=== PATIENT | male | born 1945 | race Asian ===

== ENCOUNTER 2023-07-10 23:46 | Inpatient (IN) | payer MEDICARE, OTHER ==
[~2023-07-10] VITALS: Ht 172.7 cm; Wt 55.3 kg
[2023-07-11] MEDS ORDERED: MAGN400O6 PO (00:16)
[2023-07-11] MEDS ORDERED: DOCU100C36 PO (00:16)
[2023-07-11] MEDS ORDERED: TAMS-3 PO (00:16)
[2023-07-11] MEDS ORDERED: ACET-3117 PO (00:16)
[2023-07-11] MEDS ORDERED: MULT-213 PO (00:16)
[2023-07-11] MEDS ORDERED: AMLO-212 PO (00:16)
[2023-07-11] MEDS ORDERED: ATOR40TA PO (00:16)
[2023-07-11] MEDS ORDERED: APIX2.5T PO (00:16)
[2023-07-11] MEDS ORDERED: METO25TA6 PO (00:16)
[2023-07-11] MEDS ORDERED: CRAN450T9 PO (00:16)
[2023-07-11] MEDS ORDERED: DIVA125T2 PO (00:16)
[2023-07-11] MEDS ORDERED: SITA50TA PO (00:16)
[2023-07-11 00:19] LABS: BASOPHILS % (AUTO) 0.4 % (0.0-2.0); EOSINOPHILS # (AUTO) 0.6 K/uL (0.0-0.7); HEMATOCRIT 31.1 % (36.7-47.1); HEMOGLOBIN 10.2 g/dL (12.5-16.3); LYMPHOCYTES # (AUTO) 1.4 K/uL (0.8-4.8); LYMPHOCYTES % (AUTO) 17.8 % (20.5-51.5); MEAN CORPUSCULAR HEMOGLOBIN 31.5 uug (23.8-33.4); MEAN CORPUSCULAR HGB CONC 33 g/dL (32.5-36.3); MEAN CORPUSCULAR VOLUME 96.1 fL (73.0-96.2); MONOCYTES # (AUTO) 1.4 K/uL (0.1-1.30); MONOCYTES % (AUTO) 16.9 % (0.0-11.0); NEUTROPHILS # (AUTO) 4.7 K/uL (1.8-8.9); NEUTROPHILS % (AUTO) 57.9 % (38.5-71.5); PLATELET COUNT (AUTO) 185 K/uL (152-348); RED BLOOD CELL COUNT(AUTO) 3.24 MIL/uL (4.06-5.63); RED CELL DISTRIBUTION WIDTH 14.1 % (12.1-16.2); WHITE BLOOD COUNT (AUTO) 8.1 K/uL (3.6-10.2)
[2023-07-11 00:20] LABS: DIFFERENTIAL COMMENT 1
[2023-07-11 00:22] LABS: BAND % (MANUAL) 2 % (0-10); EOSINOPHILS % (MANUAL) 8 % (0-8); LYMPHOCYTES % (MANUAL) 20 % (20-40); MONOCYTES % (MANUAL) 15 % (2-10); NEUTROPHILS % (MANUAL) 55 % (42-75)
[2023-07-11 00:23] LABS: PLATELET ESTIMATE ADEQUATE
[2023-07-11 00:39] LABS: CALCIUM 8.7 mg/dL (8.5-10.1); CARBON DIOXIDE 26 mmol/L (21-32); CHLORIDE 107 mmol/L (98-107); CREATININE 2.3 mg/dL (0.6-1.3); GLUCOSE 141 mg/dL (74-106); POTASSIUM 4.3 mmol/L (3.5-5.1); SODIUM SERUM 141 mmol/L (136-145); UREA NITROGEN, BLOOD 41 mg/dL (7-18)
[2023-07-11 00:43] LABS: BILIRUBIN,DIRECT 0.1 mg/dL (0.0-0.2); BILIRUBIN,TOTAL 0.5 mg/dL (0.2-1.0)
[2023-07-11 00:44] LABS: ALANINE AMINOTRANSFERASE 18 U/L (16-63); ALBUMIN 3.2 g/dL (3.4-5.0); ALKALINE PHOSPHATASE 102 U/L (50-136); ASPARTATE AMINOTRANSFERASE 22 U/L (15-37); TOTAL PROTEIN, SERUM 7.1 g/dL (6.4-8.2); VALPROIC ACID 25 ug/mL (50-100)
[2023-07-11 00:46] LABS: ACETAMINOPHEN < 2.0 ug/mL (10-30)
[2023-07-11 00:47] LABS: *BILIRUBIN,URIN NEGATIVE (NEGATIVE); *BLOOD, URINE NEGATIVE (NEGATIVE); *CLARITY,URINE CLEAR (CLEAR); *COLOR,URINE YELLOW (YELLOW); *KETONES,URINE NEGATIVE (NEGATIVE); *PROTEIN,URINE 1+ (NEGATIVE); *UROBILINOGEN,URINE 0.2 E.U./dl (NORMAL); LEUKOCYTE ESTERASE ,URINE NEGATIVE (NEGATIVE); NITRITE, URINE NEGATIVE (NEGATIVE); UGLUCOSE NEGATIVE (NEGATIVE)
[2023-07-11 01:06] LABS: ETHANOL < 3 MG/DL (0-10)
[2023-07-11 01:20] LABS: *AMPHETAMINE, URINE NEGATIVE (NEGATIVE); *BARBITURATE, URINE NEGATIVE (NEGATIVE); *BENZODIAZEPINE, URINE NEGATIVE (NEGATIVE); *CANNABINOID, URINE NEGATIVE (NEGATIVE); *COCCAINE, URINE NEGATIVE (NEGATIVE); *OPIATE, URINE NEGATIVE (NEGATIVE); *PHENCYCLIDINE SCREEN,URINE NEGATIVE (NEGATIVE); FENTANYL, URINE NEGATIVE (NEGATIVE)
[2023-07-11] MEDS ORDERED: MAG HYDROX/AL HYDROX/SIMETH 30 ML LIQUID UDC PO PRN (02:00)
[2023-07-11] MEDS ORDERED: BLOOD SUGAR DIAGNOSTIC 1 EACH STRIP VI ONE (02:00)
[2023-07-11] MEDS ORDERED: ACETAMINOPHEN 325 MG TABLET PO PRN (02:00)
[2023-07-11] MEDS ORDERED: MAGNESIUM HYDROXIDE 30 ML LIQUID UDC PO PRN ×2 (02:00→06:45)
[2023-07-11] MEDS: TEMAZEPAM 7.5 MG CAPSULE PO PRN (02:38)
[2023-07-11 02:41] VITALS: BP 126/77; TEMP 97.6; O2SAT 100
[2023-07-11] MEDS: LORAZEPAM 0.5 MG TABLET PO PRN ×2 (03:23→15:17)
[2023-07-11] MEDS: diphenhydrAMINE 25 MG CAP PO PRN ×3 (06:03→20:57)
[2023-07-11 07:30] VITALS: BP 131/83; TEMP 97.8; O2SAT 100
[2023-07-11] MEDS: MULTIVIT, IRON, MIN NO. 8, FA TABLET PO SCH (10:05)
[2023-07-11] MEDS: AMLODIPINE 5 MG TABLET PO SCH (10:06)
[2023-07-11] MEDS: METOPROLOL TARTRATE 25 MG TABLET PO SCH ×2 (10:06→17:28)
[2023-07-11] MEDS: DOCUSATE SODIUM 100 MG CAPSULE PO SCH (10:06)
[2023-07-11] MEDS: APIXABAN 2.5 MG TABLET PO SCH ×2 (10:58→17:29)
[2023-07-11] MEDS ORDERED: PERMETHRIN 5% CREAM 60 GM TUBE TP ONE (11:00)
[2023-07-11] MEDS: OXCARBAZEPINE 150 MG TABLET PO SCH ×2 (12:50→17:27)
[2023-07-11 16:00] VITALS: BP 127/74; TEMP 97.6; O2SAT 98
[2023-07-11 20:00] VITALS: BP 128/71; TEMP 97.4; O2SAT 100
[2023-07-11] MEDS: TAMSULOSIN HCL 0.4 MG CAP.SR.24H PO SCH (20:57)
[2023-07-11] MEDS: ATORVASTATIN 40 MG TABLET PO SCH (20:57)
[2023-07-12] MEDS: TEMAZEPAM 7.5 MG CAPSULE PO PRN (00:04)
[2023-07-12 07:30] VITALS: BP 129/62; TEMP 97.6; O2SAT 98
[2023-07-12] MEDS: MULTIVIT, IRON, MIN NO. 8, FA TABLET PO SCH (08:41)
[2023-07-12] MEDS: METOPROLOL TARTRATE 25 MG TABLET PO SCH ×2 (08:41→17:03)
[2023-07-12] MEDS: OXCARBAZEPINE 150 MG TABLET PO SCH ×3 (08:41→17:03)
[2023-07-12] MEDS: DOCUSATE SODIUM 100 MG CAPSULE PO SCH (08:41)
[2023-07-12] MEDS: AMLODIPINE 5 MG TABLET PO SCH (08:41)
[2023-07-12] MEDS: diphenhydrAMINE 25 MG CAP PO PRN ×2 (08:43→19:50)
[2023-07-12] MEDS: APIXABAN 2.5 MG TABLET PO SCH ×2 (08:43→17:15)
[2023-07-12] MEDS: risperiDONE 0.5 MG TABLET PO SCH ×2 (10:54→17:03)
[2023-07-12] MEDS: LORAZEPAM 0.5 MG TABLET PO PRN ×2 (11:53→19:50)
[2023-07-12] MEDS ORDERED: diphenhydrAMINE 1% CREAM 28.3 GM TUBE TP PRN ×2 (15:15→18:30)
[2023-07-12 16:35] VITALS: BP 129/75; TEMP 97.9; O2SAT 96
[2023-07-12 20:00] VITALS: BP 123/75; TEMP 98.1; O2SAT 98
[2023-07-12] MEDS: ATORVASTATIN 40 MG TABLET PO SCH (20:16)
[2023-07-12] MEDS: TAMSULOSIN HCL 0.4 MG CAP.SR.24H PO SCH (20:16)
[2023-07-13] MEDS: TEMAZEPAM 7.5 MG CAPSULE PO PRN (00:47)
[2023-07-13 07:59] VITALS: BP 116/92; TEMP 98; O2SAT 98
[2023-07-13] MEDS: diphenhydrAMINE 25 MG CAP PO PRN ×2 (08:33→16:21)
[2023-07-13] MEDS: risperiDONE 0.5 MG TABLET PO SCH ×2 (08:33→16:21)
[2023-07-13] MEDS: DOCUSATE SODIUM 100 MG CAPSULE PO SCH (08:33)
[2023-07-13] MEDS: OXCARBAZEPINE 150 MG TABLET PO SCH ×3 (08:33→16:21)
[2023-07-13] MEDS: MULTIVIT, IRON, MIN NO. 8, FA TABLET PO SCH (08:33)
[2023-07-13] MEDS: AMLODIPINE 5 MG TABLET PO SCH (08:34)
[2023-07-13] MEDS: METOPROLOL TARTRATE 25 MG TABLET PO SCH ×2 (08:34→16:21)
[2023-07-13] MEDS: APIXABAN 2.5 MG TABLET PO SCH ×2 (08:35→16:22)
[2023-07-13] MEDS: LORAZEPAM 0.5 MG TABLET PO PRN ×2 (13:27→20:31)
[2023-07-13 16:35] VITALS: BP 132/89; TEMP 97.9; O2SAT 97
[2023-07-13 20:00] VITALS: BP 142/94; TEMP 96; O2SAT 95
[2023-07-13] MEDS: TAMSULOSIN HCL 0.4 MG CAP.SR.24H PO SCH (20:31)
[2023-07-13] MEDS: ATORVASTATIN 40 MG TABLET PO SCH (20:31)
[2023-07-14 07:29] LABS: BASOPHILS # (AUTO) 0.1 K/UL (0.0-0.2); BASOPHILS % (AUTO) 0.6 % (0.0-2.0); EOSINOPHILS # (AUTO) 0.5 K/uL (0.0-0.7); EOSINOPHILS % (AUTO) 5.5 % (0.0-7.0); HEMATOCRIT 37.3 % (36.7-47.1); HEMOGLOBIN 12.5 g/dL (12.5-16.3); LYMPHOCYTES # (AUTO) 0.9 K/uL (0.8-4.8); LYMPHOCYTES % (AUTO) 9.6 % (20.5-51.5); MEAN CORPUSCULAR HEMOGLOBIN 31.8 uug (23.8-33.4); MEAN CORPUSCULAR HGB CONC 34 g/dL (32.5-36.3); MEAN CORPUSCULAR VOLUME 94.8 fL (73.0-96.2); MONOCYTES % (AUTO) 10.4 % (0.0-11.0); NEUTROPHILS # (AUTO) 6.8 K/uL (1.8-8.9); NEUTROPHILS % (AUTO) 73.9 % (38.5-71.5); PLATELET COUNT (AUTO) 232 K/uL (152-348); RED BLOOD CELL COUNT(AUTO) 3.94 MIL/uL (4.06-5.63); RED CELL DISTRIBUTION WIDTH 13.7 % (12.1-16.2); WHITE BLOOD COUNT (AUTO) 9.2 K/uL (3.6-10.2)
[2023-07-14 07:38] LABS: DIFFERENTIAL COMMENT 1
[2023-07-14 07:45] LABS: ALANINE AMINOTRANSFERASE 24 U/L (16-63); ALBUMIN 3.7 g/dL (3.4-5.0); ALKALINE PHOSPHATASE 85 U/L (50-136); ASPARTATE AMINOTRANSFERASE 39 U/L (15-37); BILIRUBIN,TOTAL 0.6 mg/dL (0.2-1.0); CALCIUM 9.3 mg/dL (8.5-10.1); CARBON DIOXIDE 26 mmol/L (21-32); CHLORIDE 104 mmol/L (98-107); GLUCOSE 95 mg/dL (74-106); MAGNESIUM 2.2 mg/dL (1.8-2.4); PHOSPHOROUS 3.9 mg/dL (2.5-4.9); POTASSIUM 3.9 mmol/L (3.5-5.1); SODIUM SERUM 141 mmol/L (136-145); UREA NITROGEN, BLOOD 32 mg/dL (7-18)
[2023-07-14 08:00] LABS: CREATINE KINASE, TOTAL 118 U/L (39-308)
[2023-07-14 08:17] VITALS: BP 148/79; TEMP 97.9; O2SAT 98
[2023-07-14] MEDS: DOCUSATE SODIUM 100 MG CAPSULE PO SCH (08:20)
[2023-07-14] MEDS: OXCARBAZEPINE 150 MG TABLET PO SCH ×3 (08:20→16:26)
[2023-07-14] MEDS: MULTIVIT, IRON, MIN NO. 8, FA TABLET PO SCH (08:20)
[2023-07-14] MEDS: risperiDONE 0.5 MG TABLET PO SCH ×2 (08:20→16:26)
[2023-07-14] MEDS: diphenhydrAMINE 25 MG CAP PO PRN (08:20)
[2023-07-14] MEDS: METOPROLOL TARTRATE 25 MG TABLET PO SCH ×2 (08:21→16:27)
[2023-07-14] MEDS: APIXABAN 2.5 MG TABLET PO SCH ×2 (08:21→16:27)
[2023-07-14] MEDS: AMLODIPINE 5 MG TABLET PO SCH (08:21)
[2023-07-14] MEDS: diphenhydrAMINE 1% CREAM 28.3 GM TUBE TP PRN (12:11)
[2023-07-14] MEDS: LORAZEPAM 0.5 MG TABLET PO PRN ×2 (12:27→20:34)
[2023-07-14 16:09] VITALS: BP 123/60; TEMP 98; O2SAT 97
[2023-07-14 20:00] VITALS: BP 126/83; TEMP 97.7; O2SAT 98
[2023-07-14] MEDS: ATORVASTATIN 40 MG TABLET PO SCH (20:34)
[2023-07-14] MEDS: TAMSULOSIN HCL 0.4 MG CAP.SR.24H PO SCH (20:34)
[2023-07-15 07:56] VITALS: BP 99/56; TEMP 98; O2SAT 96
[2023-07-15] MEDS: DOCUSATE SODIUM 100 MG CAPSULE PO SCH (08:26)
[2023-07-15] MEDS: MULTIVIT, IRON, MIN NO. 8, FA TABLET PO SCH (08:26)
[2023-07-15] MEDS: risperiDONE 0.5 MG TABLET PO SCH ×3 (08:27→17:38)
[2023-07-15] MEDS: OXCARBAZEPINE 150 MG TABLET PO SCH ×3 (08:27→17:38)
[2023-07-15] MEDS: APIXABAN 2.5 MG TABLET PO SCH ×2 (08:28→17:38)
[2023-07-15] MEDS: METOPROLOL TARTRATE 25 MG TABLET PO SCH ×2 (08:29→17:38)
[2023-07-15] MEDS: AMLODIPINE 5 MG TABLET PO SCH (08:31)
[2023-07-15] MEDS: diphenhydrAMINE 25 MG CAP PO PRN (08:50)
[2023-07-15] MEDS: GLUCERNA SHAKE 237 ML CAN PO SCH (17:39)
[2023-07-15 20:00] VITALS: BP 123/73; TEMP 98; O2SAT 96
[2023-07-15] MEDS: TAMSULOSIN HCL 0.4 MG CAP.SR.24H PO SCH (20:59)
[2023-07-15] MEDS: ATORVASTATIN 40 MG TABLET PO SCH (20:59)
[2023-07-15] MEDS: OXCARBAZEPINE 300 MG TABLET PO SCH (20:59)
[2023-07-16 07:55] VITALS: BP 126/61; TEMP 98.2; O2SAT 98
[2023-07-16] MEDS: MULTIVIT, IRON, MIN NO. 8, FA TABLET PO SCH (08:31)
[2023-07-16] MEDS: OXCARBAZEPINE 150 MG TABLET PO SCH ×3 (08:31→17:25)
[2023-07-16] MEDS: DOCUSATE SODIUM 100 MG CAPSULE PO SCH (08:31)
[2023-07-16] MEDS: METOPROLOL TARTRATE 25 MG TABLET PO SCH ×2 (08:32→17:26)
[2023-07-16] MEDS: AMLODIPINE 5 MG TABLET PO SCH (08:32)
[2023-07-16] MEDS: risperiDONE 0.5 MG TABLET PO SCH ×3 (08:32→17:25)
[2023-07-16] MEDS: APIXABAN 2.5 MG TABLET PO SCH ×2 (08:34→17:28)
[2023-07-16] MEDS: GLUCERNA SHAKE 237 ML CAN PO SCH ×2 (08:35→17:27)
[2023-07-16 11:06] LABS: PTH, INTACT 62 pg/mL (15-65)
[2023-07-16 11:55] LABS: BASOPHILS % (AUTO) 0.2 % (0.0-2.0); EOSINOPHILS % (AUTO) 0.1 % (0.0-7.0); HEMATOCRIT 35.2 % (36.7-47.1); HEMOGLOBIN 11.7 g/dL (12.5-16.3); LYMPHOCYTES # (AUTO) 0.4 K/uL (0.8-4.8); LYMPHOCYTES % (AUTO) 5.3 % (20.5-51.5); MEAN CORPUSCULAR HEMOGLOBIN 31.7 uug (23.8-33.4); MEAN CORPUSCULAR HGB CONC 33 g/dL (32.5-36.3); MEAN CORPUSCULAR VOLUME 95.2 fL (73.0-96.2); MONOCYTES # (AUTO) 1.3 K/uL (0.1-1.30); MONOCYTES % (AUTO) 15.8 % (0.0-11.0); NEUTROPHILS # (AUTO) 6.6 K/uL (1.8-8.9); NEUTROPHILS % (AUTO) 78.6 % (38.5-71.5); PLATELET COUNT (AUTO) 212 K/uL (152-348); RED CELL DISTRIBUTION WIDTH 14.2 % (12.1-16.2); WHITE BLOOD COUNT (AUTO) 8.4 K/uL (3.6-10.2)
[2023-07-16 12:07] LABS: A/G RATIO 0.9 (0.7-1.7); ALBUMIN 3.4 g/dL (2.9-4.4); ALPHA-1-GLOBULIN 0.3 g/dL (0.0-0.4); ALPHA-2-GLOBULIN 0.8 g/dL (0.4-1.0); BETA GLOBULIN 1.1 g/dL (0.7-1.3); GAMMA GLOBULIN 1.6 g/dL (0.4-1.8); GLOBULIN, TOTAL 3.8 g/dL (2.2-3.9); M-SPIKE Not Observed g/dL (Not Observed)
[2023-07-16 12:20] LABS: ALANINE AMINOTRANSFERASE 19 U/L (16-63); ALKALINE PHOSPHATASE 71 U/L (50-136); ASPARTATE AMINOTRANSFERASE 32 U/L (15-37); BILIRUBIN,TOTAL 0.8 mg/dL (0.2-1.0); CALCIUM 9.3 mg/dL (8.5-10.1); CARBON DIOXIDE 27 mmol/L (21-32); CHLORIDE 104 mmol/L (98-107); CREATININE 2.4 mg/dL (0.6-1.3); GLUCOSE 253 mg/dL (74-106); MAGNESIUM 2.2 mg/dL (1.8-2.4); PHOSPHOROUS 4.1 mg/dL (2.5-4.9); POTASSIUM 4.2 mmol/L (3.5-5.1); SODIUM SERUM 141 mmol/L (136-145); TOTAL PROTEIN, SERUM 7.3 g/dL (6.4-8.2); UREA NITROGEN, BLOOD 38 mg/dL (7-18)
[2023-07-16 12:22] LABS: DIFFERENTIAL COMMENT 1
[2023-07-16 15:35] VITALS: BP 136/78; TEMP 98; O2SAT 96
[2023-07-16 17:47] LABS: BAND % (MANUAL) 0 % (0-10); NEUTROPHILS % (MANUAL) 80 % (42-75)
[2023-07-16 17:48] LABS: BASOPHILS % (MANUAL) 0 % (0-2); EOSINOPHILS % (MANUAL) 1 % (0-8); LYMPHOCYTES % (MANUAL) 8 % (20-40); MONOCYTES % (MANUAL) 11 % (2-10)
[2023-07-16 20:02] VITALS: BP 130/66; TEMP 98.1; O2SAT 96
[2023-07-16] MEDS: OXCARBAZEPINE 300 MG TABLET PO SCH (21:05)
[2023-07-16] MEDS: ATORVASTATIN 40 MG TABLET PO SCH (21:05)
[2023-07-16] MEDS: TAMSULOSIN HCL 0.4 MG CAP.SR.24H PO SCH (21:05)
[2023-07-17] MEDS: diphenhydrAMINE 1% CREAM 28.3 GM TUBE TP PRN (07:03)
[2023-07-17 07:53] VITALS: BP 115/72; TEMP 98.2; O2SAT 96
[2023-07-17] MEDS: GLUCERNA SHAKE 237 ML CAN PO SCH ×2 (08:00→15:15)
[2023-07-17] MEDS: DOCUSATE SODIUM 100 MG CAPSULE PO SCH (08:47)
[2023-07-17] MEDS: MULTIVIT, IRON, MIN NO. 8, FA TABLET PO SCH (08:47)
[2023-07-17] MEDS: OXCARBAZEPINE 150 MG TABLET PO SCH ×3 (08:47→18:44)
[2023-07-17] MEDS: risperiDONE 0.5 MG TABLET PO SCH ×2 (08:47→14:02)
[2023-07-17] MEDS: AMLODIPINE 5 MG TABLET PO SCH (08:48)
[2023-07-17] MEDS: METOPROLOL TARTRATE 25 MG TABLET PO SCH ×2 (08:49→18:48)
[2023-07-17] MEDS: APIXABAN 2.5 MG TABLET PO SCH ×2 (08:52→18:45)
[2023-07-17] MEDS: diphenhydrAMINE 25 MG CAP PO PRN ×2 (09:20→20:28)
[2023-07-17 15:27] VITALS: BP 118/65; TEMP 98.2; O2SAT 96
[2023-07-17 17:19] LABS: BASOPHILS % (AUTO) 0.1 % (0.0-2.0); EOSINOPHILS # (AUTO) 0.3 K/uL (0.0-0.7); EOSINOPHILS % (AUTO) 4.1 % (0.0-7.0); HEMATOCRIT 36.2 % (36.7-47.1); LYMPHOCYTES # (AUTO) 1.1 K/uL (0.8-4.8); MEAN CORPUSCULAR HEMOGLOBIN 31.5 uug (23.8-33.4); MEAN CORPUSCULAR HGB CONC 33 g/dL (32.5-36.3); MEAN CORPUSCULAR VOLUME 94.8 fL (73.0-96.2); MONOCYTES # (AUTO) 1.1 K/uL (0.1-1.30); NEUTROPHILS # (AUTO) 3.8 K/uL (1.8-8.9); NEUTROPHILS % (AUTO) 60.5 % (38.5-71.5); PLATELET COUNT (AUTO) 239 K/uL (152-348); RED BLOOD CELL COUNT(AUTO) 3.82 MIL/uL (4.06-5.63); RED CELL DISTRIBUTION WIDTH 14.3 % (12.1-16.2); WHITE BLOOD COUNT (AUTO) 6.3 K/uL (3.6-10.2)
[2023-07-17 17:21] LABS: DIFFERENTIAL COMMENT 1
[2023-07-17 17:22] LABS: LYMPHOCYTES % (AUTO) 20.7 % (20.5-51.5); MONOCYTES % (AUTO) 14.6 % (0.0-11.0)
[2023-07-17 17:33] LABS: ALANINE AMINOTRANSFERASE 34 U/L (16-63); ALBUMIN 3.2 g/dL (3.4-5.0); ALKALINE PHOSPHATASE 96 U/L (50-136); ASPARTATE AMINOTRANSFERASE 68 U/L (15-37); BILIRUBIN,TOTAL 0.4 mg/dL (0.2-1.0); CALCIUM 9.4 mg/dL (8.5-10.1); CARBON DIOXIDE 26 mmol/L (21-32); CHLORIDE 105 mmol/L (98-107); CREATININE 2.4 mg/dL (0.6-1.3); GLUCOSE 250 mg/dL (74-106); POTASSIUM 4.1 mmol/L (3.5-5.1); SODIUM SERUM 143 mmol/L (136-145); TOTAL PROTEIN, SERUM 8.2 g/dL (6.4-8.2); UREA NITROGEN, BLOOD 51 mg/dL (7-18)
[2023-07-17] MEDS: BENZTROPINE MESYLATE 0.5 MG TABLET PO SCH ×2 (18:44→20:27)
[2023-07-17 19:53] VITALS: BP 116/60; TEMP 98.3; O2SAT 96
[2023-07-17] MEDS: ATORVASTATIN 40 MG TABLET PO SCH (20:27)
[2023-07-17] MEDS: TAMSULOSIN HCL 0.4 MG CAP.SR.24H PO SCH (20:27)
[2023-07-17] MEDS ORDERED: OXCARBAZEPINE 300 MG TABLET PO SCH (21:00)
[2023-07-17] MEDS: TEMAZEPAM 7.5 MG CAPSULE PO PRN (22:37)
[2023-07-18 05:16] LABS: *BILIRUBIN,URIN NEGATIVE (NEGATIVE); *BLOOD, URINE NEGATIVE (NEGATIVE); *CLARITY,URINE CLEAR (CLEAR); *COLOR,URINE YELLOW (YELLOW); *KETONES,URINE NEGATIVE (NEGATIVE); *PROTEIN,URINE 2+ (NEGATIVE); *UROBILINOGEN,URINE 0.2 E.U./dl (NORMAL); LEUKOCYTE ESTERASE ,URINE NEGATIVE (NEGATIVE); NITRITE, URINE NEGATIVE (NEGATIVE); PH,URINE 5.5 (5.0-8.0)
[2023-07-18 05:17] LABS: UGLUCOSE 1+ (NEGATIVE)
[2023-07-18 05:26] LABS: *CREATININE,URINE 153.6 mg/dL (30-125); *URINE TOTAL PROTEIN RANDOM 91.7 mg/dL (<150/24HR)
[2023-07-18] MEDS: METOPROLOL TARTRATE 25 MG TABLET PO SCH ×2 (08:34→17:33)
[2023-07-18] MEDS: OXCARBAZEPINE 150 MG TABLET PO SCH ×2 (08:36→17:35)
[2023-07-18] MEDS: BENZTROPINE MESYLATE 0.5 MG TABLET PO SCH ×3 (08:36→20:16)
[2023-07-18] MEDS: risperiDONE 0.5 MG TABLET PO SCH ×4 (08:36→17:34)
[2023-07-18] MEDS: AMLODIPINE 5 MG TABLET PO SCH (08:37)
[2023-07-18] MEDS: MULTIVIT, IRON, MIN NO. 8, FA TABLET PO SCH (08:38)
[2023-07-18] MEDS: DOCUSATE SODIUM 100 MG CAPSULE PO SCH (08:39)
[2023-07-18] MEDS: GLUCERNA SHAKE 237 ML CAN PO SCH (08:46)
[2023-07-18] MEDS: APIXABAN 2.5 MG TABLET PO SCH ×2 (08:46→17:38)
[2023-07-18 09:52] VITALS: BP 132/55; TEMP 98.4; O2SAT 98
[2023-07-18] MEDS ORDERED: LORAZEPAM 0.5 MG TABLET PO PRN (10:15)
[2023-07-18] MEDS ORDERED: DEXTROSE 50% 50 ML DISP.SYRIN IV PRN (10:30)
[2023-07-18 11:23] LABS: BASOPHILS % (AUTO) 0.2 % (0.0-2.0); EOSINOPHILS # (AUTO) 0.3 K/uL (0.0-0.7); EOSINOPHILS % (AUTO) 6.4 % (0.0-7.0); HEMOGLOBIN 11.7 g/dL (12.5-16.3); LYMPHOCYTES # (AUTO) 0.9 K/uL (0.8-4.8); LYMPHOCYTES % (AUTO) 18.8 % (20.5-51.5); MEAN CORPUSCULAR HEMOGLOBIN 31.6 uug (23.8-33.4); MEAN CORPUSCULAR HGB CONC 33 g/dL (32.5-36.3); MEAN CORPUSCULAR VOLUME 94.9 fL (73.0-96.2); MONOCYTES # (AUTO) 0.7 K/uL (0.1-1.30); MONOCYTES % (AUTO) 13.4 % (0.0-11.0); NEUTROPHILS # (AUTO) 3.1 K/uL (1.8-8.9); NEUTROPHILS % (AUTO) 61.2 % (38.5-71.5); PLATELET COUNT (AUTO) 234 K/uL (152-348); RED BLOOD CELL COUNT(AUTO) 3.69 MIL/uL (4.06-5.63); RED CELL DISTRIBUTION WIDTH 14.4 % (12.1-16.2)
[2023-07-18 11:26] LABS: DIFFERENTIAL COMMENT 1
[2023-07-18 11:34] LABS: ALANINE AMINOTRANSFERASE 34 U/L (16-63); ALKALINE PHOSPHATASE 80 U/L (50-136); ASPARTATE AMINOTRANSFERASE 59 U/L (15-37); BILIRUBIN,TOTAL 0.4 mg/dL (0.2-1.0); CALCIUM 9.7 mg/dL (8.5-10.1); CARBON DIOXIDE 27 mmol/L (21-32); CHLORIDE 105 mmol/L (98-107); CREATININE 2.1 mg/dL (0.6-1.3); GLUCOSE 217 mg/dL (74-106); MAGNESIUM 2.2 mg/dL (1.8-2.4); POTASSIUM 3.9 mmol/L (3.5-5.1); SODIUM SERUM 143 mmol/L (136-145); TOTAL PROTEIN, SERUM 7.7 g/dL (6.4-8.2); UREA NITROGEN, BLOOD 50 mg/dL (7-18)
[2023-07-18] MEDS: BLOOD SUGAR DIAGNOSTIC 1 EACH STRIP VI SCH ×3 (11:38→20:04)
[2023-07-18 11:39] LABS: AMMONIA < 10 umol/L (11-32)
[2023-07-18] MEDS ORDERED: IV NS 1000 ML 1,000 ML IV ONE (14:37)
[2023-07-18] MEDS: diphenhydrAMINE 1% CREAM 28.3 GM TUBE TP PRN (15:55)
[2023-07-18 16:05] VITALS: BP 103/61; TEMP 98; O2SAT 100
[2023-07-18] MEDS: INSULIN REGULAR, HUMAN 300 UNIT/3 ML VIAL SQ PRN ×2 (17:05→20:18)
[2023-07-18 19:54] VITALS: BP 131/85; TEMP 98.1; O2SAT 98
[2023-07-18] MEDS: TAMSULOSIN HCL 0.4 MG CAP.SR.24H PO SCH (20:16)
[2023-07-18] MEDS: ATORVASTATIN 40 MG TABLET PO SCH (20:16)
[2023-07-18] MEDS ORDERED: PERMETHRIN 5% CREAM 60 GM TUBE TP ONE ×2 (20:31→21:00)
[2023-07-18] MEDS: TEMAZEPAM 7.5 MG CAPSULE PO PRN (22:01)
[2023-07-19] MEDS: BLOOD SUGAR DIAGNOSTIC 1 EACH STRIP VI SCH ×4 (06:12→20:29)
[2023-07-19 08:17] LABS: CALCIUM 9.5 mg/dL (8.5-10.1); CARBON DIOXIDE 27 mmol/L (21-32); CHLORIDE 106 mmol/L (98-107); CREATININE 1.9 mg/dL (0.6-1.3); GLUCOSE 125 mg/dL (74-106); POTASSIUM 3.7 mmol/L (3.5-5.1); SODIUM SERUM 142 mmol/L (136-145); UREA NITROGEN, BLOOD 46 mg/dL (7-18)
[2023-07-19 08:28] VITALS: BP 120/63; TEMP 97.8; O2SAT 96
[2023-07-19] MEDS: BENZTROPINE MESYLATE 0.5 MG TABLET PO SCH ×3 (09:22→20:39)
[2023-07-19] MEDS: MULTIVIT, IRON, MIN NO. 8, FA TABLET PO SCH (09:27)
[2023-07-19] MEDS: OXCARBAZEPINE 150 MG TABLET PO SCH ×2 (09:27→18:07)
[2023-07-19] MEDS: METOPROLOL TARTRATE 25 MG TABLET PO SCH ×2 (09:27→18:09)
[2023-07-19] MEDS: DOCUSATE SODIUM 100 MG CAPSULE PO SCH (09:28)
[2023-07-19] MEDS: APIXABAN 2.5 MG TABLET PO SCH ×2 (09:38→18:21)
[2023-07-19] MEDS: risperiDONE 0.5 MG TABLET PO SCH ×3 (09:40→18:07)
[2023-07-19] MEDS: GLUCERNA SHAKE 237 ML CAN PO SCH (09:40)
[2023-07-19] MEDS: AMLODIPINE 5 MG TABLET PO SCH (09:41)
[2023-07-19 16:06] VITALS: BP 133/79; TEMP 98; O2SAT 98
[2023-07-19] MEDS: INSULIN REGULAR, HUMAN 300 UNIT/3 ML VIAL SQ PRN ×2 (18:13→20:38)
[2023-07-19] MEDS: CLOTRIMAZOLE 1% CREAM 30 GM TUBE TOP SCH ×2 (18:32→21:32)
[2023-07-19 20:08] VITALS: BP 114/57; TEMP 98.4; O2SAT 97
[2023-07-19] MEDS: diphenhydrAMINE 25 MG CAP PO PRN (20:39)
[2023-07-19] MEDS: ATORVASTATIN 40 MG TABLET PO SCH (20:39)
[2023-07-19] MEDS: TAMSULOSIN HCL 0.4 MG CAP.SR.24H PO SCH (20:39)
[2023-07-19] MEDS: diphenhydrAMINE 1% CREAM 28.3 GM TUBE TP PRN (21:31)
[2023-07-20] MEDS: BLOOD SUGAR DIAGNOSTIC 1 EACH STRIP VI SCH ×4 (06:21→21:35)
[2023-07-20 07:40] VITALS: BP 126/64; TEMP 98; O2SAT 98
[2023-07-20] MEDS: GLUCERNA SHAKE 237 ML CAN PO SCH (09:00)
[2023-07-20] MEDS: APIXABAN 2.5 MG TABLET PO SCH ×2 (09:18→17:16)
[2023-07-20] MEDS: OXCARBAZEPINE 150 MG TABLET PO SCH ×2 (09:19→17:10)
[2023-07-20] MEDS: DOCUSATE SODIUM 100 MG CAPSULE PO SCH (09:19)
[2023-07-20] MEDS: risperiDONE 0.5 MG TABLET PO SCH ×3 (09:19→17:10)
[2023-07-20] MEDS: MULTIVIT, IRON, MIN NO. 8, FA TABLET PO SCH (09:19)
[2023-07-20] MEDS: diphenhydrAMINE 25 MG CAP PO PRN ×2 (09:20→21:59)
[2023-07-20] MEDS: BENZTROPINE MESYLATE 0.5 MG TABLET PO SCH ×3 (09:20→21:19)
[2023-07-20] MEDS: AMLODIPINE 5 MG TABLET PO SCH (09:20)
[2023-07-20] MEDS: METOPROLOL TARTRATE 25 MG TABLET PO SCH ×2 (09:20→17:10)
[2023-07-20 09:46] LABS: CALCIUM 8.9 mg/dL (8.5-10.1); CARBON DIOXIDE 20 mmol/L (21-32); CHLORIDE 106 mmol/L (98-107); CREATININE 1.9 mg/dL (0.6-1.3); GLUCOSE 195 mg/dL (74-106); SODIUM SERUM 137 mmol/L (136-145); UREA NITROGEN, BLOOD 42 mg/dL (7-18)
[2023-07-20 09:54] LABS: POTASSIUM 4.3 mmol/L (3.5-5.1)
[2023-07-20] MEDS: INSULIN REGULAR, HUMAN 300 UNIT/3 ML VIAL SQ PRN ×2 (13:31→21:41)
[2023-07-20 16:25] VITALS: BP 107/83; TEMP 98; O2SAT 97
[2023-07-20] MEDS: diphenhydrAMINE 1% CREAM 28.3 GM TUBE TP PRN (17:12)
[2023-07-20] MEDS: CLOTRIMAZOLE 1% CREAM 30 GM TUBE TOP SCH (17:12)
[2023-07-20 20:00] VITALS: BP 141/82; TEMP 98.1; O2SAT 95
[2023-07-20] MEDS: ATORVASTATIN 40 MG TABLET PO SCH (21:17)
[2023-07-20] MEDS: TAMSULOSIN HCL 0.4 MG CAP.SR.24H PO SCH (21:19)
[2023-07-21] MEDS: BLOOD SUGAR DIAGNOSTIC 1 EACH STRIP VI SCH ×4 (06:41→20:56)
[2023-07-21 08:13] VITALS: BP 134/78; TEMP 98; O2SAT 97
[2023-07-21] MEDS: diphenhydrAMINE 25 MG CAP PO PRN (08:21)
[2023-07-21] MEDS: OXCARBAZEPINE 150 MG TABLET PO SCH ×2 (08:21→17:13)
[2023-07-21] MEDS: risperiDONE 0.5 MG TABLET PO SCH ×3 (08:21→17:13)
[2023-07-21] MEDS: DOCUSATE SODIUM 100 MG CAPSULE PO SCH (08:21)
[2023-07-21] MEDS: MULTIVIT, IRON, MIN NO. 8, FA TABLET PO SCH (08:21)
[2023-07-21] MEDS: METOPROLOL TARTRATE 25 MG TABLET PO SCH ×2 (08:22→17:00)
[2023-07-21] MEDS: BENZTROPINE MESYLATE 0.5 MG TABLET PO SCH ×3 (08:22→20:26)
[2023-07-21] MEDS: AMLODIPINE 5 MG TABLET PO SCH (08:22)
[2023-07-21] MEDS: APIXABAN 2.5 MG TABLET PO SCH ×2 (08:24→17:20)
[2023-07-21] MEDS: GLUCERNA SHAKE 237 ML CAN PO SCH (08:25)
[2023-07-21] MEDS: CLOTRIMAZOLE 1% CREAM 30 GM TUBE TOP SCH ×2 (08:26→17:14)
[2023-07-21] MEDS: INSULIN REGULAR, HUMAN 300 UNIT/3 ML VIAL SQ PRN ×3 (13:14→21:02)
[2023-07-21 16:17] VITALS: BP 100/50; TEMP 98; O2SAT 97
[2023-07-21 20:04] VITALS: BP 109/81; TEMP 98.1; O2SAT 99
[2023-07-21] MEDS: TAMSULOSIN HCL 0.4 MG CAP.SR.24H PO SCH (20:26)
[2023-07-21] MEDS: ATORVASTATIN 40 MG TABLET PO SCH (20:26)
[2023-07-21] MEDS: TEMAZEPAM 7.5 MG CAPSULE PO PRN (21:54)
[2023-07-21] MEDS: diphenhydrAMINE 1% CREAM 28.3 GM TUBE TP PRN (23:38)
[2023-07-22] MEDS: BLOOD SUGAR DIAGNOSTIC 1 EACH STRIP VI SCH ×4 (06:48→20:57)
[2023-07-22 07:59] VITALS: BP 119/73; TEMP 97.9; O2SAT 96
[2023-07-22 07:59] LABS: BASOPHILS # (AUTO) 0.1 K/UL (0.0-0.2); BASOPHILS % (AUTO) 0.5 % (0.0-2.0); EOSINOPHILS # (AUTO) 0.4 K/uL (0.0-0.7); EOSINOPHILS % (AUTO) 4.2 % (0.0-7.0); HEMATOCRIT 35.6 % (36.7-47.1); LYMPHOCYTES # (AUTO) 1.2 K/uL (0.8-4.8); LYMPHOCYTES % (AUTO) 11.5 % (20.5-51.5); MEAN CORPUSCULAR HEMOGLOBIN 31.7 uug (23.8-33.4); MEAN CORPUSCULAR HGB CONC 34 g/dL (32.5-36.3); MEAN CORPUSCULAR VOLUME 93.8 fL (73.0-96.2); MONOCYTES # (AUTO) 1.2 K/uL (0.1-1.30); MONOCYTES % (AUTO) 11.7 % (0.0-11.0); NEUTROPHILS # (AUTO) 7.2 K/uL (1.8-8.9); NEUTROPHILS % (AUTO) 72.1 % (38.5-71.5); PLATELET COUNT (AUTO) 244 K/uL (152-348)
[2023-07-22 08:09] LABS: DIFFERENTIAL COMMENT 1
[2023-07-22 08:18] LABS: ALANINE AMINOTRANSFERASE 33 U/L (16-63); ALBUMIN 2.7 g/dL (3.4-5.0); ALKALINE PHOSPHATASE 86 U/L (50-136); ASPARTATE AMINOTRANSFERASE 39 U/L (15-37); BILIRUBIN,TOTAL 0.4 mg/dL (0.2-1.0); CALCIUM 9.5 mg/dL (8.5-10.1); CARBON DIOXIDE 29 mmol/L (21-32); CHLORIDE 105 mmol/L (98-107); GLUCOSE 118 mg/dL (74-106); PHOSPHOROUS 3.7 mg/dL (2.5-4.9); SODIUM SERUM 139 mmol/L (136-145); TOTAL PROTEIN, SERUM 7.1 g/dL (6.4-8.2); UREA NITROGEN, BLOOD 43 mg/dL (7-18)
[2023-07-22] MEDS: OXCARBAZEPINE 150 MG TABLET PO SCH ×2 (08:28→17:25)
[2023-07-22] MEDS: DOCUSATE SODIUM 100 MG CAPSULE PO SCH (08:28)
[2023-07-22] MEDS: BENZTROPINE MESYLATE 0.5 MG TABLET PO SCH ×3 (08:28→20:10)
[2023-07-22] MEDS: AMLODIPINE 5 MG TABLET PO SCH (08:28)
[2023-07-22] MEDS: MULTIVIT, IRON, MIN NO. 8, FA TABLET PO SCH (08:28)
[2023-07-22] MEDS: risperiDONE 0.5 MG TABLET PO SCH (08:28)
[2023-07-22] MEDS: GLUCERNA SHAKE 237 ML CAN PO SCH (08:29)
[2023-07-22] MEDS: METOPROLOL TARTRATE 25 MG TABLET PO SCH ×2 (08:29→17:26)
[2023-07-22] MEDS: APIXABAN 2.5 MG TABLET PO SCH ×2 (08:29→17:26)
[2023-07-22] MEDS: CLOTRIMAZOLE 1% CREAM 30 GM TUBE TOP SCH ×2 (08:30→17:27)
[2023-07-22] MEDS: diphenhydrAMINE 25 MG CAP PO PRN (08:50)
[2023-07-22] MEDS: INSULIN REGULAR, HUMAN 300 UNIT/3 ML VIAL SQ PRN ×2 (12:07→17:13)
[2023-07-22 16:19] VITALS: BP 114/72; TEMP 98; O2SAT 96
[2023-07-22] MEDS ORDERED: risperiDONE 0.5 MG TABLET PO SCH (17:00)
[2023-07-22 20:00] VITALS: BP 139/83; TEMP 98.1; O2SAT 100
[2023-07-22] MEDS: TAMSULOSIN HCL 0.4 MG CAP.SR.24H PO SCH (20:10)
[2023-07-22] MEDS: ATORVASTATIN 40 MG TABLET PO SCH (20:10)
[2023-07-22] MEDS: TEMAZEPAM 7.5 MG CAPSULE PO PRN (21:20)
[2023-07-26] MEDS ORDERED: BENZ0.5T43 PO (10:39)
[2023-07-26] MEDS ORDERED: DOCU-141 PO (10:39)
[2023-07-26] MEDS ORDERED: CLOT30CR24 TOP (10:39)
[2023-07-26] MEDS ORDERED: RISP0.5T74 PO ×2 (10:39)
[2023-07-26] MEDS ORDERED: NUT.237L36 PO (10:39)
[2023-07-26] MEDS ORDERED: LACT1CAP69 PO (10:39)
[2023-07-26] MEDS ORDERED: AMOX-427 PO (10:39)
[2023-07-26] MEDS ORDERED: MULT-24 PO (10:39)
[2023-07-26] MEDS ORDERED: OXCA150T5 PO (10:39)
[2023-07-26] MEDS ORDERED: LORA0.5T48 PO (10:39)
[2023-07-26] MEDS ORDERED: TEMA7.5C PO (10:39)
[2023-07-26] MEDS ORDERED: ASPI81TA31 PO (10:41)
== END 2023-07-22 21:43 | disposition short-term general hospital (02) | DRG 885 ==
LOC: ER 23:54 → GPS 07-11 00:49
PROVIDERS: ADMIT Psychiatry & Neurology Psychosomatic Medicine; ATTEND Internal Medicine
DX: F31.9 Bipolar disorder, unspecified (principal); F01.54 Vascular dementia, unspecified severity, with anxiety; N18.30 Chronic kidney disease, stage 3 unspecified; N17.9 Acute kidney failure, unspecified; I48.20 Chronic atrial fibrillation, unspecified; D68.59 Other primary thrombophilia; F01.518 Vascular dementia, unspecified severity, with other behavioral disturbance; E44.0 Moderate protein-calorie malnutrition; Z68.1 Body mass index [BMI] 19.9 or less, adult; R64 Cachexia; E11.22 Type 2 diabetes mellitus with diabetic chronic kidney disease; B86 Scabies; E78.5 Hyperlipidemia, unspecified; Z79.01 Long term (current) use of anticoagulants; Z86.73 Personal history of transient ischemic attack (TIA), and cerebral infarction without residual deficits; J44.9 Chronic obstructive pulmonary disease, unspecified; M89.8X9 Other specified disorders of bone, unspecified site; M19.90 Unspecified osteoarthritis, unspecified site; N40.0 Benign prostatic hyperplasia without lower urinary tract symptoms; E86.0 Dehydration; R53.1 Weakness
CPT/HCPCS: 36415; 70030-TC; 71045; 76770; 80164; 83735; 83970; 84100; 84155; 84165; 84300; 85025; 93005; A4663; C1758; G0480; J1815; J7040; Q0163

== ENCOUNTER 2023-07-22 21:40 | Inpatient (IN) | payer MEDICARE, OTHER ==
[~2023-07-22] VITALS: Ht 172.7 cm; Wt 50.8 kg
[~2023-07-22 21:40] MED LIST: ACET-3117 PO; AMLO-212 PO; APIX2.5T PO; ATOR40TA PO; CRAN450T9 PO; DOCU100C36 PO; MAGN400O6 PO; METO25TA6 PO; MULT-213 PO; SITA50TA PO; TAMS-3 PO
[2023-07-22 22:00] VITALS: BP 119/78; TEMP 97.9; O2SAT 94
[2023-07-22] MEDS ORDERED: REMEDY ESSENTIAL ZINC PASTE 113 GM TOP PRN (22:45)
[2023-07-23] MEDS ORDERED: ACETAMINOPHEN 325 MG TABLET PO PRN (01:00)
[2023-07-23] MEDS ORDERED: MAG HYDROX/AL HYDROX/SIMETH 30 ML LIQUID UDC PO PRN (01:00)
[2023-07-23] MEDS ORDERED: MAGNESIUM HYDROXIDE 30 ML LIQUID UDC PO PRN (01:00)
[2023-07-23] MEDS ORDERED: DEXTROSE 50% 50 ML DISP.SYRIN IV PRN (01:00)
[2023-07-23 06:27] VITALS: BP 123/67; TEMP 98.9; O2SAT 95
[2023-07-23] MEDS: BLOOD SUGAR DIAGNOSTIC 1 EACH STRIP VI SCH ×4 (06:27→21:00)
[2023-07-23 08:00] VITALS: BP 122/83; TEMP 98.5; O2SAT 96
[2023-07-23] MEDS ORDERED: AMLODIPINE 5 MG TABLET PO SCH (09:00)
[2023-07-23] MEDS: OXCARBAZEPINE 150 MG TABLET PO SCH ×2 (09:36→18:04)
[2023-07-23] MEDS: BENZTROPINE MESYLATE 0.5 MG TABLET PO SCH ×3 (09:37→20:34)
[2023-07-23] MEDS: MULTIVITAMINS,THERAPEUTIC TABLET PO SCH (09:37)
[2023-07-23] MEDS: risperiDONE 0.25 MG TABLET PO SCH ×2 (09:37→18:03)
[2023-07-23] MEDS: DOCUSATE SODIUM 100 MG CAPSULE PO SCH (09:37)
[2023-07-23] MEDS: METOPROLOL TARTRATE 25 MG TABLET PO SCH ×2 (09:38→20:35)
[2023-07-23] MEDS: APIXABAN 2.5 MG TABLET PO SCH ×2 (09:38→20:36)
[2023-07-23] MEDS: GLUCERNA SHAKE 237 ML CAN PO SCH (09:39)
[2023-07-23] MEDS: CLOTRIMAZOLE 1% CREAM 30 GM TUBE TOP SCH ×2 (09:51→18:04)
[2023-07-23 11:22] LABS: BASOPHILS # (AUTO) 0.1 K/UL (0.0-0.2); BASOPHILS % (AUTO) 0.6 % (0.0-2.0); EOSINOPHILS # (AUTO) 0.3 K/uL (0.0-0.7); EOSINOPHILS % (AUTO) 3.5 % (0.0-7.0); HEMATOCRIT 32.2 % (36.7-47.1); HEMOGLOBIN 10.8 g/dL (12.5-16.3); LYMPHOCYTES # (AUTO) 0.8 K/uL (0.8-4.8); MEAN CORPUSCULAR HEMOGLOBIN 31.6 uug (23.8-33.4); MEAN CORPUSCULAR HGB CONC 34 g/dL (32.5-36.3); MEAN CORPUSCULAR VOLUME 94.4 fL (73.0-96.2); MONOCYTES # (AUTO) 1.2 K/uL (0.1-1.30); NEUTROPHILS # (AUTO) 7.5 K/uL (1.8-8.9); NEUTROPHILS % (AUTO) 75.9 % (38.5-71.5); PLATELET COUNT (AUTO) 237 K/uL (152-348); RED BLOOD CELL COUNT(AUTO) 3.41 MIL/uL (4.06-5.63); RED CELL DISTRIBUTION WIDTH 13.7 % (12.1-16.2); WHITE BLOOD COUNT (AUTO) 9.9 K/uL (3.6-10.2)
[2023-07-23 11:35] LABS: ALANINE AMINOTRANSFERASE 26 U/L (16-63); ALBUMIN 2.5 g/dL (3.4-5.0); ALKALINE PHOSPHATASE 74 U/L (50-136); ASPARTATE AMINOTRANSFERASE 35 U/L (15-37); BILIRUBIN,TOTAL 0.5 mg/dL (0.2-1.0); CALCIUM 9.2 mg/dL (8.5-10.1); CARBON DIOXIDE 27 mmol/L (21-32); CHLORIDE 102 mmol/L (98-107); GLUCOSE 220 mg/dL (74-106); MAGNESIUM 1.8 mg/dL (1.8-2.4); POTASSIUM 4.1 mmol/L (3.5-5.1); SODIUM SERUM 133 mmol/L (136-145); TOTAL PROTEIN, SERUM 6.6 g/dL (6.4-8.2); UREA NITROGEN, BLOOD 38 mg/dL (7-18)
[2023-07-23 11:56] LABS: DIFFERENTIAL COMMENT 1
[2023-07-23] MEDS: INSULIN REGULAR, HUMAN 300 UNIT/3 ML VIAL SQ PRN ×2 (12:28→21:05)
[2023-07-23] MEDS: IV 1/2NS 1000 ML 1,000 ML IV PRN (14:23)
[2023-07-23 14:35] VITALS: BP 124/56; TEMP 98.3; O2SAT 96
[2023-07-23 17:01] VITALS: BP 107/73; TEMP 98.1; O2SAT 98
[2023-07-23 20:00] VITALS: BP 117/52; TEMP 97.9; O2SAT 100
[2023-07-23] MEDS: TAMSULOSIN HCL 0.4 MG CAP.SR.24H PO SCH (20:34)
[2023-07-23] MEDS ORDERED: ATORVASTATIN 40 MG TABLET PO SCH (21:00)
[2023-07-23] MEDS ORDERED: BENZTROPINE MESYLATE 0.5 MG TABLET PO SCH (21:00)
[2023-07-23] MEDS: TEMAZEPAM 7.5 MG CAPSULE PO PRN (22:36)
[2023-07-24 04:00] VITALS: BP 108/56; TEMP 98; O2SAT 98
[2023-07-24] MEDS: LORAZEPAM 0.5 MG TABLET PO PRN ×3 (04:42→21:55)
[2023-07-24] MEDS: diphenhydrAMINE 25 MG CAP PO PRN ×3 (05:58→23:42)
[2023-07-24] MEDS: IV 1/2NS 1000 ML 1,000 ML IV PRN ×2 (06:09→22:31)
[2023-07-24] MEDS: BLOOD SUGAR DIAGNOSTIC 1 EACH STRIP VI SCH ×4 (06:38→20:47)
[2023-07-24 07:23] LABS: BASOPHILS % (AUTO) 0.5 % (0.0-2.0); EOSINOPHILS # (AUTO) 0.4 K/uL (0.0-0.7); EOSINOPHILS % (AUTO) 3.8 % (0.0-7.0); HEMATOCRIT 30.8 % (36.7-47.1); HEMOGLOBIN 10.6 g/dL (12.5-16.3); LYMPHOCYTES # (AUTO) 1.1 K/uL (0.8-4.8); LYMPHOCYTES % (AUTO) 10.3 % (20.5-51.5); MEAN CORPUSCULAR HEMOGLOBIN 32.1 uug (23.8-33.4); MEAN CORPUSCULAR HGB CONC 34 g/dL (32.5-36.3); MEAN CORPUSCULAR VOLUME 93.4 fL (73.0-96.2); MONOCYTES # (AUTO) 1.2 K/uL (0.1-1.30); MONOCYTES % (AUTO) 11.4 % (0.0-11.0); NEUTROPHILS # (AUTO) 7.5 K/uL (1.8-8.9); PLATELET COUNT (AUTO) 238 K/uL (152-348); RED CELL DISTRIBUTION WIDTH 13.6 % (12.1-16.2); WHITE BLOOD COUNT (AUTO) 10.2 K/uL (3.6-10.2)
[2023-07-24 07:33] LABS: DIFFERENTIAL COMMENT 1
[2023-07-24 07:38] LABS: MAGNESIUM 1.8 mg/dL (1.8-2.4); PHOSPHOROUS 3.2 mg/dL (2.5-4.9)
[2023-07-24] MEDS: INSULIN REGULAR, HUMAN 300 UNIT/3 ML VIAL SQ PRN ×4 (07:57→21:12)
[2023-07-24 08:00] VITALS: BP 124/78; TEMP 97.3; O2SAT 96
[2023-07-24] MEDS: MULTIVITAMINS,THERAPEUTIC TABLET PO SCH (08:24)
[2023-07-24] MEDS: DOCUSATE SODIUM 100 MG CAPSULE PO SCH (08:24)
[2023-07-24] MEDS: risperiDONE 0.25 MG TABLET PO SCH ×2 (08:24→17:08)
[2023-07-24] MEDS: BENZTROPINE MESYLATE 0.5 MG TABLET PO SCH ×3 (08:24→20:22)
[2023-07-24] MEDS: METOPROLOL TARTRATE 25 MG TABLET PO SCH ×2 (08:30→20:33)
[2023-07-24] MEDS: APIXABAN 2.5 MG TABLET PO SCH ×2 (08:30→20:32)
[2023-07-24] MEDS: OXCARBAZEPINE 150 MG TABLET PO SCH ×2 (08:31→17:08)
[2023-07-24] MEDS: GLUCERNA SHAKE 237 ML CAN PO SCH ×2 (08:31→17:13)
[2023-07-24] MEDS: CLOTRIMAZOLE 1% CREAM 30 GM TUBE TOP SCH ×2 (08:37→17:11)
[2023-07-24 11:36] VITALS: BP 118/61; TEMP 97.6; O2SAT 97
[2023-07-24 15:28] VITALS: BP 152/56; TEMP 97.6; O2SAT 99
[2023-07-24] MEDS ORDERED: PIPERACILLIN/TAZO 2.25 G in IV DEXTROSE 5% 50 ML IV SCH (19:00)
[2023-07-24 20:00] VITALS: BP 148/81; TEMP 98.6; O2SAT 97
[2023-07-24] MEDS: TAMSULOSIN HCL 0.4 MG CAP.SR.24H PO SCH (20:22)
[2023-07-24] MEDS: PIPERACILLIN SODIUM/TAZOBACTAM 3.375 G in IV DEXTROSE 5% 100 ML IV SCH (22:12)
[2023-07-25] MEDS: TEMAZEPAM 7.5 MG CAPSULE PO PRN (00:29)
[2023-07-25 04:00] VITALS: BP 122/72; TEMP 97.5
[2023-07-25] MEDS: PIPERACILLIN SODIUM/TAZOBACTAM 3.375 G in IV DEXTROSE 5% 100 ML IV SCH ×3 (05:58→22:26)
[2023-07-25] MEDS: BLOOD SUGAR DIAGNOSTIC 1 EACH STRIP VI SCH ×4 (06:57→21:57)
[2023-07-25 07:34] LABS: BASOPHILS % (AUTO) 0.3 % (0.0-2.0); EOSINOPHILS # (AUTO) 0.4 K/uL (0.0-0.7); EOSINOPHILS % (AUTO) 3.3 % (0.0-7.0); HEMATOCRIT 32.6 % (36.7-47.1); HEMOGLOBIN 11.1 g/dL (12.5-16.3); LYMPHOCYTES # (AUTO) 1.1 K/uL (0.8-4.8); LYMPHOCYTES % (AUTO) 9.9 % (20.5-51.5); MEAN CORPUSCULAR HEMOGLOBIN 31.8 uug (23.8-33.4); MEAN CORPUSCULAR HGB CONC 34 g/dL (32.5-36.3); MEAN CORPUSCULAR VOLUME 93.1 fL (73.0-96.2); MONOCYTES # (AUTO) 1.3 K/uL (0.1-1.30); MONOCYTES % (AUTO) 11.3 % (0.0-11.0); NEUTROPHILS # (AUTO) 8.7 K/uL (1.8-8.9); NEUTROPHILS % (AUTO) 75.2 % (38.5-71.5); PLATELET COUNT (AUTO) 252 K/uL (152-348); RED CELL DISTRIBUTION WIDTH 13.5 % (12.1-16.2); WHITE BLOOD COUNT (AUTO) 11.5 K/uL (3.6-10.2)
[2023-07-25 07:43] LABS: DIFFERENTIAL COMMENT 1
[2023-07-25] MEDS: GLUCERNA SHAKE 237 ML CAN PO SCH ×2 (08:00→17:25)
[2023-07-25 08:01] LABS: ALANINE AMINOTRANSFERASE 29 U/L (16-63); ALBUMIN 2.8 g/dL (3.4-5.0); ALKALINE PHOSPHATASE 82 U/L (50-136); ASPARTATE AMINOTRANSFERASE 40 U/L (15-37); BILIRUBIN,TOTAL 0.7 mg/dL (0.2-1.0); CALCIUM 8.9 mg/dL (8.5-10.1); CARBON DIOXIDE 25 mmol/L (21-32); CHLORIDE 100 mmol/L (98-107); GLUCOSE 133 mg/dL (74-106); MAGNESIUM 1.8 mg/dL (1.8-2.4); PHOSPHOROUS 3.4 mg/dL (2.5-4.9); POTASSIUM 3.7 mmol/L (3.5-5.1); SODIUM SERUM 137 mmol/L (136-145); TOTAL PROTEIN, SERUM 7.4 g/dL (6.4-8.2); UREA NITROGEN, BLOOD 24 mg/dL (7-18)
[2023-07-25] MEDS: OXCARBAZEPINE 150 MG TABLET PO SCH ×3 (10:06→17:26)
[2023-07-25] MEDS: BENZTROPINE MESYLATE 0.5 MG TABLET PO SCH ×3 (10:06→21:45)
[2023-07-25] MEDS: DOCUSATE SODIUM 100 MG CAPSULE PO SCH (10:07)
[2023-07-25] MEDS: LORAZEPAM 0.5 MG TABLET PO PRN (10:07)
[2023-07-25] MEDS: METOPROLOL TARTRATE 25 MG TABLET PO SCH ×2 (10:07→21:53)
[2023-07-25] MEDS: risperiDONE 0.25 MG TABLET PO SCH (10:07)
[2023-07-25] MEDS: APIXABAN 2.5 MG TABLET PO SCH ×2 (10:08→21:48)
[2023-07-25] MEDS: MULTIVITAMINS,THERAPEUTIC TABLET PO SCH (10:08)
[2023-07-25] MEDS: CLOTRIMAZOLE 1% CREAM 30 GM TUBE TOP SCH ×2 (10:09→17:25)
[2023-07-25] MEDS: diphenhydrAMINE 1% CREAM 28.3 GM TUBE TP PRN (10:09)
[2023-07-25 12:00] VITALS: BP_SYST 113; BP_SYST 120; BP_DIAS 64; BP_DIAS 76; TEMP 97.7; TEMP 98; O2SAT 100; O2SAT 98
[2023-07-25] MEDS: INSULIN REGULAR, HUMAN 300 UNIT/3 ML VIAL SQ PRN ×2 (12:17→21:59)
[2023-07-25 16:00] VITALS: BP 113/76; TEMP 98; O2SAT 100
[2023-07-25] MEDS: risperiDONE-M 0.5 MG TAB.RAPDIS PO SCH ×2 (17:26→21:45)
[2023-07-25] MEDS: TAMSULOSIN HCL 0.4 MG CAP.SR.24H PO SCH (21:45)
[2023-07-25 22:00] VITALS: BP 118/63; TEMP 98; O2SAT 98
[2023-07-26 04:00] VITALS: BP 115/74; TEMP 98.3; O2SAT 99
[2023-07-26] MEDS: PIPERACILLIN SODIUM/TAZOBACTAM 3.375 G in IV DEXTROSE 5% 100 ML IV SCH ×3 (06:16→21:55)
[2023-07-26] MEDS: BLOOD SUGAR DIAGNOSTIC 1 EACH STRIP VI SCH ×4 (06:44→21:45)
[2023-07-26] MEDS: GLUCERNA SHAKE 237 ML CAN PO SCH ×2 (08:58→17:29)
[2023-07-26] MEDS: DOCUSATE SODIUM 100 MG CAPSULE PO SCH (08:59)
[2023-07-26] MEDS: MULTIVITAMINS,THERAPEUTIC TABLET PO SCH (08:59)
[2023-07-26] MEDS: METOPROLOL TARTRATE 25 MG TABLET PO SCH ×2 (08:59→21:55)
[2023-07-26] MEDS: risperiDONE-M 0.5 MG TAB.RAPDIS PO SCH ×3 (08:59→21:59)
[2023-07-26] MEDS: OXCARBAZEPINE 150 MG TABLET PO SCH ×3 (08:59→17:29)
[2023-07-26] MEDS: BENZTROPINE MESYLATE 0.5 MG TABLET PO SCH ×3 (08:59→21:55)
[2023-07-26] MEDS: APIXABAN 2.5 MG TABLET PO SCH ×2 (09:00→21:56)
[2023-07-26] MEDS: diphenhydrAMINE 1% CREAM 28.3 GM TUBE TP PRN (09:02)
[2023-07-26] MEDS: CLOTRIMAZOLE 1% CREAM 30 GM TUBE TOP SCH ×2 (09:02→17:29)
[2023-07-26] MEDS: IV 1/2NS 1000 ML 1,000 ML IV PRN (09:45)
[2023-07-26] MEDS ORDERED: AMOX-427 PO (10:39)
[2023-07-26] MEDS ORDERED: LACT1CAP69 PO (10:39)
[2023-07-26] MEDS ORDERED: NUT.237L36 PO (10:39)
[2023-07-26] MEDS ORDERED: RISP0.5T74 PO ×2 (10:39)
[2023-07-26] MEDS ORDERED: MULT-24 PO (10:39)
[2023-07-26] MEDS ORDERED: LORA0.5T48 PO (10:39)
[2023-07-26] MEDS ORDERED: DOCU-141 PO (10:39)
[2023-07-26] MEDS ORDERED: BENZ0.5T43 PO (10:39)
[2023-07-26] MEDS ORDERED: OXCA150T5 PO (10:39)
[2023-07-26] MEDS ORDERED: TEMA7.5C PO (10:39)
[2023-07-26] MEDS ORDERED: CLOT30CR24 TOP (10:39)
[2023-07-26] MEDS ORDERED: ASPI81TA31 PO (10:41)
[2023-07-26 11:31] VITALS: BP 92/70; TEMP 98.2; O2SAT 96
[2023-07-26] MEDS: LORAZEPAM 0.5 MG TABLET PO PRN (11:52)
[2023-07-26 15:56] VITALS: BP 117/63; TEMP 97.7; O2SAT 98
[2023-07-26 20:24] VITALS: BP 118/70; TEMP 98.3; O2SAT 100
[2023-07-26] MEDS: INSULIN REGULAR, HUMAN 300 UNIT/3 ML VIAL SQ PRN (21:59)
[2023-07-26] MEDS: TAMSULOSIN HCL 0.4 MG CAP.SR.24H PO SCH (21:59)
[2023-07-26] MEDS: TEMAZEPAM 7.5 MG CAPSULE PO PRN (23:22)
[2023-07-27] MEDS: LORAZEPAM 0.5 MG TABLET PO PRN (00:20)
[2023-07-27 04:04] VITALS: BP 126/84; TEMP 97.6; O2SAT 98
[2023-07-27] MEDS: PIPERACILLIN SODIUM/TAZOBACTAM 3.375 G in IV DEXTROSE 5% 100 ML IV SCH (06:14)
[2023-07-27] MEDS: BLOOD SUGAR DIAGNOSTIC 1 EACH STRIP VI SCH (06:21)
[2023-07-27 07:17] LABS: CARBON DIOXIDE 26 mmol/L (21-32); CHLORIDE 102 mmol/L (98-107); CREATININE 2.1 mg/dL (0.6-1.3); GLUCOSE 135 mg/dL (74-106); POTASSIUM 3.6 mmol/L (3.5-5.1); SODIUM SERUM 137 mmol/L (136-145); UREA NITROGEN, BLOOD 16 mg/dL (7-18)
[2023-07-27] MEDS: GLUCERNA SHAKE 237 ML CAN PO SCH (08:00)
[2023-07-27] MEDS: MULTIVITAMINS,THERAPEUTIC TABLET PO SCH (09:00)
[2023-07-27] MEDS: DOCUSATE SODIUM 100 MG CAPSULE PO SCH (09:00)
[2023-07-27] MEDS: OXCARBAZEPINE 150 MG TABLET PO SCH (09:30)
[2023-07-27] MEDS: BENZTROPINE MESYLATE 0.5 MG TABLET PO SCH (09:30)
[2023-07-27 09:31] VITALS: BP 126/84
[2023-07-27] MEDS: risperiDONE-M 0.5 MG TAB.RAPDIS PO SCH (09:31)
[2023-07-27] MEDS: METOPROLOL TARTRATE 25 MG TABLET PO SCH (09:31)
[2023-07-27] MEDS: APIXABAN 2.5 MG TABLET PO SCH (09:32)
[2023-07-27] MEDS: CLOTRIMAZOLE 1% CREAM 30 GM TUBE TOP SCH (09:32)
[2023-07-27] MEDS ORDERED: PIPERACILLIN SODIUM/TAZOBACTAM 3.375 G in IV DEXTROSE 5% 100 ML IV SCH (18:00)
== END 2023-07-27 10:45 | DRG 177 ==
LOC: MEDSURG3 21:40
PROVIDERS: ADMIT Nurse Practitioner Acute Care; ATTEND Internal Medicine
PROC: 05HA33Z Insertion of Infusion Device into Left Brachial Vein, Percutaneous Approach (ICD-10-PCS; principal; 2023-07-24)
DX: J69.0 Pneumonitis due to inhalation of food and vomit (principal); G92.8 Other toxic encephalopathy; N17.0 Acute kidney failure with tubular necrosis; E87.1 Hypo-osmolality and hyponatremia; I48.20 Chronic atrial fibrillation, unspecified; F01.54 Vascular dementia, unspecified severity, with anxiety; F01.53 Vascular dementia, unspecified severity, with mood disturbance; J91.8 Pleural effusion in other conditions classified elsewhere; E11.22 Type 2 diabetes mellitus with diabetic chronic kidney disease; N18.30 Chronic kidney disease, stage 3 unspecified; Z66 Do not resuscitate; Z79.01 Long term (current) use of anticoagulants; Z86.19 Personal history of other infectious and parasitic diseases; E78.5 Hyperlipidemia, unspecified; N40.0 Benign prostatic hyperplasia without lower urinary tract symptoms; M19.90 Unspecified osteoarthritis, unspecified site; I69.919 Unspecified symptoms and signs involving cognitive functions following unspecified cerebrovascular disease; G93.89 Other specified disorders of brain; E86.0 Dehydration; E11.65 Type 2 diabetes mellitus with hyperglycemia; D53.9 Nutritional anemia, unspecified; N18.9 Chronic kidney disease, unspecified; Z87.891 Personal history of nicotine dependence
CPT/HCPCS: 36415; 70450; 71045; 83735; 84100; 85025; A4663; A6213; C1758; G0378; J1815; J2543; Q0163